=== PATIENT | female | born 1990 | race Caucasian/White ===

== ENCOUNTER 2023-08-30 20:11 | Emergency (ER) | payer OTHER, SELFPAY ==
--- NOTE | 2023-08-30 20:38 | PC.NURSE ---
Pt called for triage, no answer.
[2023-08-30 20:47] VITALS: BP 128/67; PULSE 74; RESP 14; TEMP 36.8; O2SAT 100
[2023-08-30 21:18] LABS: Appearance Urine Clear (Clear); Bacteria Urine None Seen /hpf; Bilirubin Urine Negative (Negative); Blood Urine 3+ (Negative); Color Urine Yellow (Yellow); Glucose Urine UA Negative (Negative); Ketones Urine Negative (Negative); Leukocyte Esterase Ur 1+ LEU/UL (Negative); Need Manual Microscopic Reviewed; Nitrate Urine Negative (Negative); Non Pathogenic Casts 0-2; Protein Urine Negative (Negative); Specific Grav Ur 1.002 (1.001-1.035); Squamous Epithelial Cell Urine None seen /hpf (Few); Urobilinogen Urine 0.2 mg/dL (<2.0); WBC Urine 21-50 /hpf; pH Urine 6.5 (5.0-9.0)
[2023-08-30 21:19] LABS: Add Urine Microscopic? YES
[2023-08-30 23:07] VITALS: BP 103/62; PULSE 66; RESP 16; O2SAT 100
--- NOTE | 2023-08-31 00:15 | ED.FEMALEGU ---
HPI - Female Genitourinary General Chief complaint: Urogenital-Female Stated complaint: Urinary frequency, burning, pain Time Seen by Provider: 08/30/23 23:08 Source: patient Mode of arrival: ambulatory Limitations: no limitations History of Present Illness HPI Narrative: This is a 33-year-old female that presents to the emergency department for dysuria. Ongoing over the last couple of days. Reports worsening day with associated urinary frequency. Denies fevers, vomiting, or flank pain. Related Data Allergies Allergy/AdvReac Type Severity Reaction Status Date / Time metronidazole [From Flagyl] Allergy Rash Verified 08/30/23 22:59 Penicillins Allergy Hives Verified 08/30/23 20:13 Sulfa (Sulfonamide Allergy Rash Verified 08/30/23 20:14 Antibiotics) Review of Systems Review of Systems: CONSTITUTIONAL: Denies fever GASTROINTESTINAL: Denies abdominal pain, nausea, vomiting GENITOURINARY: Reports dysuria. Denies hematuria. All systems reviewed & are unremarkable except as noted in HPI and below PMFSH Surgical History Surgical History (Updated 08/31/23 @ 00:19 by Chasidy Florence PA-C) History of Social History Social History (Updated 08/31/23 @ 00:19 by Chasidy Florence PA-C) Substance use: never Exam Narrative: GENERAL: Well-appearing, well-nourished, and in no acute distress. HEAD: Normocephalic, atraumatic. EYES: EOMI. CHEST: Clear to auscultation. No respiratory distress. No wheezes rales or rhonchi HEART: Regular rate and rhythm. No murmur heard. Normal peripheral pulses. ABDOMEN: Soft, nontender, nondistended, normal active bowel sounds. No CVA tenderness EXTREMITIES: Normal range of motion. No edema. SKIN: Warm, dry, no rash. NEURO: No focal deficits. Alert and oriented x3. PSYCH: Normal mood and affect Course Course Emergency Course: Patient updated on her workup and agrees with plan of care Vital Signs Vital signs: Vital Signs Temperature 98.3 F 08/30/23 20:47 Pulse Rate 74 08/30/23 20:47 Respiratory Rate 14 08/30/23 20:47 Blood Pressure 128/67 08/30/23 20:47 Pulse Oximetry 100 08/30/23 20:47 Oxygen Delivery Room Air 08/30/23 20:47 Temperature 98.3 F 08/30/23 20:47 Pulse Rate 66 08/30/23 23:07 Respiratory Rate 16 08/30/23 23:07 Blood Pressure 103/62 08/30/23 23:07 Pulse Oximetry 100 08/30/23 23:07 Oxygen Delivery Room Air 08/30/23 20:47 MDM - Female Genitourinary MDM Narrative Medical decision making narrative: Patient presents to the emergency department for dysuria. Ongoing over the last couple of days. She is afebrile and nontoxic appearing. Her vitals are stable. No CVA tenderness on exam. test is negative. UA is consistent with infection with 21-50 white blood cells and 1+ leuk esterase. Patient will be started on oral antibiotics and was instructed to follow-up with her primary provider. She was given warnings to return to the ER Differential Diagnosis Differential diagnosis: Likely urinary tract infection, vaginitis, cystitis and dysmenorrhea Lab Data Attestation: I reviewed the patient's lab results. Labs: Lab Results 08/30/23 Range/Units 20:52 Urine Color Yellow (Yellow) Urine Appearance Clear (Clear) Urine pH 6.5 (5.0-9.0) Ur Specific [place] 1.002 (1.001-1.035) Urine Protein Negative (Negative) mg/dL Urine Glucose (UA) Negative (Negative) mg/dL Urine Ketones Negative (Negative) mg/dL Ur Blood (Man) 3+ H (Negative) Urine Nitrate Negative (Negative) Urine Bilirubin Negative (Negative) Urine Urobilinogen 0.2 (<2.0) mg/dL Add Ur Microanalysis Reviewed Leukocyte Esterase Rfl 1+ H (Negative) RAFIQ/UL Urine RBC 3-5 H (0-2) /hpf Urine WBC 21-50 H /hpf Ur Squamous Epith Cells None seen (Few) /hpf Urine Bacteria None seen /hpf Urine Casts 0-2 UCG Bedside Result Negative
[2023-08-31] MEDS: CEFDINIR 300 MG CAPSULE PO (00:36)
[2023-08-31 00:38] VITALS: BP 99/65; PULSE 67; RESP 15; TEMP 37; O2SAT 100
== END 2023-08-31 00:39 | disposition home or self-care (01) ==
PROVIDERS: Emergency Medicine; Emergency Provider Physician Assistant
DX: N39.0 Urinary tract infection, site not specified (principal)
CPT/HCPCS: 81001; 81025; 87086; 87088; 99283; A9270